=== PATIENT | female | born 1945 | race Native Hawaiian/Other Pacific Islander ===

== ENCOUNTER 2020-12-26 08:53 | Outpatient (CLI) | payer OTHER | END 2020-12-26 21:34 | disposition home or self-care (01) | LOC: RAD 08:53 | PROVIDERS: ATTEND Internal Medicine | DX: Z13.820 Encounter for screening for osteoporosis (principal); N95.1 Menopausal and female climacteric states; N95.8 Other specified menopausal and perimenopausal disorders ==